=== PATIENT | female | born 1955 | race Caucasian/White ===

== ENCOUNTER 2016-11-13 13:01 | Emergency (ER) | payer MEDICAID ==
[2010-03-13 08:50] VITALS: BMI 27.1
== END 2016-11-13 15:16 | disposition left against medical advice (07) ==
LOC: D.ER 13:01
DX: M79.661 Pain in right lower leg (principal)

== ENCOUNTER → 2016-11-19 13:30 | Outpatient (CLI) | payer MEDICAID | END | disposition home or self-care (01) | LOC: D.CT 13:30 | DX: J32.9 Chronic sinusitis, unspecified (principal) ==

== ENCOUNTER → 2016-12-04 10:15 | Outpatient (CLI) | payer MEDICAID ==
[2010-03-13 08:50] VITALS: BMI 27.1
[~2016-12-04 10:15] MED LIST: ALBUTEROL2.5 MG/3 M INH; ALORA1 PATCH.B1 TD; ATIVAN0.5 MG PO; BENZONATATE200 MG PO; BREO ELLIPTA 21 EACH INH; BROVANA15 MCG/2 M INH; CLEOCIN HCL300 MG PO; FLORAJEN3 CAPS460 MG PO; FLUTICASONE PRO16 GM NASAL; HYDROCODONE-APA1 TAB PO; IPRAT-ALBUT 0.5-3 ML UPD; LEVAQUIN750 MG PO; LIPITOR20 MG PO; MUCINEX DM ER1 EAC1 PO; PEPCID40 MG PO; PREDNISONE10 MG PO; PROAIR HFA8.5 GM INH; PROMETRIUM200 MG PO; SINGULAIR10 MG PO; SPIRIVA18 MCG INH; TOPROL XL50 MG PO; VITAMIN D250000 UNIT PO; VYVANSE60 MG PO; WELLBUTRIN SR150 MG PO; XANAX0.5 MG PO
[2016-12-04 11:40] LABS: CREATININE - SERUM 1.1 mg/dL (0.6-1.3)
[2017-03-06 16:24] VITALS: BMI 27.9
== END | disposition home or self-care (01) ==
LOC: D.CT 10:15
PROVIDERS: Family Medicine
DX: C96.9 Malignant neoplasm of lymphoid, hematopoietic and related tissue, unspecified (principal)

== ENCOUNTER 2016-12-07 09:00 | Outpatient (CLI) | payer MEDICAID ==
[2010-03-13 08:50] VITALS: BMI 27.1
[2016-12-13] MEDS ORDERED: LIPITOR20 MG PO (11:29)
[2016-12-13] MEDS ORDERED: ALORA1 PATCH.B1 TD (11:29)
[2016-12-13] MEDS ORDERED: TOPROL XL50 MG PO (11:29)
[2016-12-13] MEDS ORDERED: FLUTICASONE PRO16 GM NASAL (11:29)
[2016-12-13] MEDS ORDERED: PEPCID40 MG PO (11:29)
[2016-12-13] MEDS ORDERED: VYVANSE60 MG PO (11:30)
[2016-12-13] MEDS ORDERED: VITAMIN D250000 UNIT PO (11:30)
[2016-12-13] MEDS ORDERED: PROAIR HFA8.5 GM INH (11:30)
[2016-12-13] MEDS ORDERED: PROMETRIUM200 MG PO (11:30)
[2016-12-13] MEDS ORDERED: ATIVAN0.5 MG PO (11:31)
[2016-12-13] MEDS ORDERED: ALBUTEROL2.5 MG/3 M INH (11:32)
[2016-12-13] MEDS ORDERED: SPIRIVA18 MCG INH (11:32)
[2017-03-06 16:24] VITALS: BMI 27.9
== END 2016-12-07 23:59 | disposition home or self-care (01) ==
LOC: D.MAMMO 09:00
DX: R92.8 Other abnormal and inconclusive findings on diagnostic imaging of breast (principal)

== ENCOUNTER 2016-12-14 06:47 | Day surgery (SDC) | payer MEDICAID ==
[~2016-12-14 06:47] MED LIST changes: -BENZONATATE200 MG PO; -BREO ELLIPTA 21 EACH INH; -BROVANA15 MCG/2 M INH; -CLEOCIN HCL300 MG PO; -FLORAJEN3 CAPS460 MG PO; -HYDROCODONE-APA1 TAB PO; -IPRAT-ALBUT 0.5-3 ML UPD; -LEVAQUIN750 MG PO; -MUCINEX DM ER1 EAC1 PO; -PREDNISONE10 MG PO; -SINGULAIR10 MG PO; -WELLBUTRIN SR150 MG PO; -XANAX0.5 MG PO
[2016-12-14 07:38] LABS: BASOPHILS 0.2 % (0-2); EOSINOPHILS 3.4 % (0-7); HEMATOCRIT 40.4 % (36.0-48.0); HEMOGLOBIN 13.4 g/dL (12-16); IMMATURE GRANULOCYTES 0.2 % (0-5); LYMPHOCYTES 35.3 % (15-50); MCH 31.6 pg (26.0-34.0); MCHC 33.2 g/dL (31.0-37.0); MCV 95.3 fL (80.0-100.0); MEAN PLATELET VOLUME 11.7 fL (7.4-10.4); MONOCYTES 8.9 % (2-11); PLATELET COUNT 229 10x3/uL (130-400); RBC 4.24 10x6/uL (4.00-5.40); RDW 12.9 % (11.5-14.5)
[2016-12-14 07:47] LABS: APTT 28.7 SECONDS (22.8-39.4); INR 0.99 (0.85-1.17)
[2016-12-14 08:03] LABS: ANION GAP 13.3 mmol/L (8-16); CALCIUM 8.4 mg/dL (8.5-10.1); CARBON DIOXIDE 25.7 mmol/L (21.0-32.0)
[2016-12-14] MEDS ORDERED: XANAX0.5 MG PO (08:11)
[2016-12-14 08:15] VITALS: BP 124/80; BMI 28.9
[2016-12-14] MEDS ORDERED: HYDROCODONE-APA1 TAB PO (11:06)
--- NOTE | 2016-12-14 11:18 | NUR ---
PATIENT TOOK DENTURES RIGHT BEFORE GENERAL ANESTHESIA THEN TAKEN TO RR TO BE PLACED BACK IN SOON ABLE, DENTURES GIVEN TO RICARDO PENA.
--- NOTE | 2016-12-14 12:36 | OP ---
PATIENT NAME: DANK ARZOLA MEDICAL RECORD: [id number] :59 LOCATION:D.OPS ADMISSION DATE: SURGEON: AARON TAPIA MD DATE OF OPERATION: 12/14/2016 PREOPERATIVE DIAGNOSES: 1. Left axillary lymphadenopathy. 2. Tobacco dependence syndrome. 3. Hypercholesterolemia. 4. Osteoporosis. 5. History of renal cell carcinoma. POSTOPERATIVE DIAGNOSES: 1. Left axillary lymphadenopathy. 2. Tobacco dependence syndrome. 3. Hypercholesterolemia. 4. Osteoporosis. 5. History of renal cell carcinoma. PROCEDURE: Left axillary lymph node excisional biopsy. SURGEON: Aaron Tapia MD REPORT OF PROCEDURE: The patient's left axilla was prepped and draped in sterile fashion. A transverse incision was made overlying the mass. Electrocautery was used to dissect through the subcutaneous tissues. We encountered the large mass. We were able to come around the mass and excise it from the surrounding attachments. There were couple of blood vessels that were attached to this and these were tied off and ligated with 2-0 silk ties. Once the mass was completely excised, it was sent off for permanent specimen. The subcutaneous tissues were irrigated out and care was taken to make sure there was no sign of any active bleeding. The subcutaneous tissues were reapproximated with interrupted 3-0 Vicryl and the skin was closed with running subcutaneous 5-0 Monocryl. A 10 mL of 0.25% Marcaine with epinephrine was infused in the surrounding tissues and the wound was dressed appropriately. COMPLICATIONS: None. CONDITION: Stable. ANESTHESIA: General endotracheal and local. BLOOD LOSS: Minimal. TRANSINT:[id number] Voice Confirmation ID: [id number] DOCUMENT ID: [id number] AARON TAPIA MD at 1236 CC: MARYSOL FLORES M.D. [id number] DICTATION DATE: 12/14/16 1110 BOX STAMPER: 12/14/16 1148 [place] [id number]
--- NOTE | 2016-12-14 13:00 | NUR ---
DC TEACHING COMPLETE WITH PT AND SON PT VU. PRESCRIPT GIVEN PIV REMPVED W/CATHETER TIP INTACT. GOING TO FINISH SALAD BEFORE LEAVING.
--- NOTE | 2016-12-14 13:20 | NUR ---
PT DC HOSP. VIA WC W/SON DRIVING. FRESH ICE BAG GIVEN PT W/O DISTRESS NOTED.
== END 2016-12-14 13:20 | disposition home or self-care (01) ==
LOC: D.OPS 06:47 → D.PAN 13:15 → D.OPS 13:20
PROVIDERS: Anesthesiology
DX: R59.0 Localized enlarged lymph nodes (principal); F17.200 Nicotine dependence, unspecified, uncomplicated; E78.00 Pure hypercholesterolemia, unspecified; M81.0 Age-related osteoporosis without current pathological fracture; Z01.812 Encounter for preprocedural laboratory examination

== ENCOUNTER 2017-02-01 11:35 | Inpatient (IN) | payer MEDICAID ==
[~2017-02-01] VITALS: Ht 162.6 cm; Wt 78.1 kg
[~2017-02-01 11:35] MED LIST changes: +HYDROCODONE-APA1 TAB PO; +XANAX0.5 MG PO
[2017-02-01] MEDS ORDERED: WELLBUTRIN SR150 MG PO (12:15)
[2017-02-01 12:22] VITALS: BP 145/75; BMI 29.4
[2017-02-01 12:50] VITALS: BP 145/74
--- NOTE | 2017-02-01 12:51 | NUR ---
ADMISSION WORK-UP COMPLETED. PT A&O AND VERY ANXIOUS WITH VERY LABORED RR. LUNGS ARE CTA. PROVIDED PT WITH NC @2L TO HELP WITH ANXIETY AND HELP HER BREATHE EASIER. 22 GUAGE PIV INSERTED TO R.FA X2 STICKS AND SL WILL BEGIN ANBX SHORTLY. PT DENIES ANY CURRENT PAIN OR FURTHER NEEDS. WILL CPOC.
--- NOTE | 2017-02-01 13:22 | NUR ---
URINE SAMPLE COLLECTED AND SENT TO LAB. PT NOT WANTING FLU SWAB OR STREP AND STATES THE CLINIC JUST DID IT. WILL DISCUSS WITH PRIMARY. PT SITTING ON EDGE OF BED AND GOING TO TRY AND EAT SOME LUNCH. WILL CPOC.
[2017-02-01 13:43] LABS: APPEARANCE CLEAR (CLEAR); COLOR YELLOW (YELLOW); SPECIFIC GRAVITY 1.015 (1.005-1.020)
[2017-02-01 13:44] LABS: BILIRUBIN NEGATIVE (NEGATIVE); EPITHELIAL CELLS 0-5 /hpf (0-5); GLUCOSE NEGATIVE (NEGATIVE); KETONE NEGATIVE (NEGATIVE); NITRITE NEGATIVE (NEGATIVE); PROTEIN 1+ mg/dL (NEGATIVE); RED CELLS - URINE 0-5 /hpf (0-5); UROBILINOGEN NORMAL (NORMAL); WHITE CELLS - URINE 0-5 /hpf (0-5)
[2017-02-01 13:45] LABS: BACTERIA FEW /hpf (NONE SEEN)
--- NOTE | 2017-02-01 14:26 | NUR ---
CALLED LAB INQUIRING ABOUT PTS LABS THEY WERE ORDERED 2 HOURS AGO UPON ADMISSION AND STILL HAVENT BEEN DRAWN. SPOKE TO BUSINESS SERVICES SALES REPRESENTATIVE AND THEY STATED THEY WILL HEAD THIS WAY.
[2017-02-01 15:26] LABS: BASOPHILS 0.5 % (0-2); EOSINOPHILS 0.2 % (0-7); IMMATURE GRANULOCYTES 0.5 % (0-5); LYMPHOCYTES 23.8 % (15-50); MCH 31.3 pg (26.0-34.0); MCHC 33.3 g/dL (31.0-37.0); MCV 93.8 fL (80.0-100.0); MEAN PLATELET VOLUME 11.1 fL (7.4-10.4); MONOCYTES 12.6 % (2-11); NEUTROPHILS 62.4 % (40-80); PLATELET COUNT 208 10x3/uL (130-400); RBC 3.84 10x6/uL (4.00-5.40); RDW 13.1 % (11.5-14.5)
[2017-02-01 15:34] LABS: ANION GAP 14.1 mmol/L (8-16); CALCIUM 8.1 mg/dL (8.5-10.1); CARBON DIOXIDE 23.7 mmol/L (21.0-32.0); CREATININE - SERUM 1.1 mg/dL (0.6-1.3); POTASSIUM - SERUM 3.8 mmol/L (3.5-5.1)
[2017-02-01 16:22] VITALS: BP 135/72
--- NOTE | 2017-02-01 17:50 | NUR ---
PT VERY ANXIOUS AND SCARED SHE CANT CATCH HER BREATH. VSS AND OXYGEN LEVEL 94% PT NORMALLY TAKES XANAX AT HOME AND IS REQUESTING IT. PAGED PRIMARY DOCTOR AND WILL TRY TO GET IT.
--- NOTE | 2017-02-01 19:25 | NUR ---
ROUNDING NOTE: PT IS SITTING UP IN CHAIR VISITING WITH SON AND AND GRANDSON IN HER ROOM AT THE CHANGE OF SHIFT. PT IS WEARING 3L OF OXYGEN VIA NC. SHE APPEARS VERY NERVOUS WITH SLIGHTLY LABORED RESPIRATIONS. OXYGEN SATS ARE WNL. PT DOES NOT WANT TO REDO THE FLU AND STREP CULTURES AT THE TIME SINCE THEY WERE JUST DONE AT THE MD OFFICE. WE DISCUSSED THE NEED TO REMAIN CALM TO HELP HER BREATHING. SHE AND HER SON AGREED WITH THIS. PT REQUESTED SOME ICE WATER, GIVEN PER REQUEST. WILL MONITOR.
[2017-02-01 20:59] VITALS: BP 136/73
[2017-02-02 01:13] VITALS: BP 111/70
[2017-02-02 04:51] VITALS: BP 107/59
[2017-02-02 05:18] LABS: BASOPHILS 0.4 % (0-2); EOSINOPHILS 0 % (0-7); HEMATOCRIT 35.3 % (36.0-48.0); HEMOGLOBIN 11.8 g/dL (12-16); LYMPHOCYTES 16.9 % (15-50); MCH 31.4 pg (26.0-34.0); MCHC 33.4 g/dL (31.0-37.0); MCV 93.9 fL (80.0-100.0); MEAN PLATELET VOLUME 11.2 fL (7.4-10.4); MONOCYTES 3.8 % (2-11); NEUTROPHILS 77.9 % (40-80); PLATELET COUNT 232 10x3/uL (130-400); RBC 3.76 10x6/uL (4.00-5.40); RDW 13.1 % (11.5-14.5); WBC 7.9 10x3/uL (4.8-10.8)
[2017-02-02 05:50] LABS: ANION GAP 16.5 mmol/L (8-16); CALCIUM 8.2 mg/dL (8.5-10.1); CARBON DIOXIDE 24.3 mmol/L (21.0-32.0); CREATININE - SERUM 1.1 mg/dL (0.6-1.3); POTASSIUM - SERUM 3.8 mmol/L (3.5-5.1)
--- NOTE | 2017-02-02 07:14 | NUR ---
PT REPORTS THAT SHE IS FEELING SO MUCH BETTER THIS MORNING AFTER RECEIVING HER STEROIDS AND ANXIETY MEDICINE. WILL CONT TO MONITOR.
--- NOTE | 2017-02-02 07:30 | NUR ---
RECIEVED PT IN BED AAOX4 RESP UNLABORED NAD NOTED
[2017-02-02 08:45] VITALS: BP 126/69
[2017-02-02 11:27] VITALS: Ht 162.6 cm; Wt 78.1 kg
[2017-02-02 11:49] VITALS: BP 124/63
--- NOTE | 2017-02-02 15:41 | NUR ---
PT REFUSES TO WEAR SCDS PT IS UP AD GRACE
[2017-02-02 15:45] VITALS: BP 143/69
[2017-02-02 21:24] VITALS: BP 124/57
[2017-02-03] VITALS: BP 112/49
[2017-02-03 04:00] VITALS: BP 125/71
[2017-02-03 05:23] LABS: BASOPHILS 0.2 % (0-2); EOSINOPHILS 0 % (0-7); HEMATOCRIT 33.9 % (36.0-48.0); HEMOGLOBIN 11.1 g/dL (12-16); IMMATURE GRANULOCYTES 2.2 % (0-5); LYMPHOCYTES 14.5 % (15-50); MCH 30.4 pg (26.0-34.0); MCHC 32.7 g/dL (31.0-37.0); MCV 92.9 fL (80.0-100.0); MEAN PLATELET VOLUME 11.2 fL (7.4-10.4); MONOCYTES 7.6 % (2-11); NEUTROPHILS 75.5 % (40-80); PLATELET COUNT 257 10x3/uL (130-400); RBC 3.65 10x6/uL (4.00-5.40); RDW 13.4 % (11.5-14.5)
[2017-02-03 05:34] LABS: WBC 14.9 10x3/uL (4.8-10.8)
[2017-02-03 05:36] LABS: ANION GAP 15.1 mmol/L (8-16); CALCIUM 8.7 mg/dL (8.5-10.1); CARBON DIOXIDE 24.7 mmol/L (21.0-32.0); CREATININE - SERUM 1.1 mg/dL (0.6-1.3); POTASSIUM - SERUM 3.8 mmol/L (3.5-5.1)
--- NOTE | 2017-02-03 07:30 | NUR ---
RESTING QUIETLY DENIES ANY NEEDS OR DISCOMFORT NAD NOTED
--- NOTE | 2017-02-03 07:36 | NUR ---
LYING IN BED EYES CLOSED RESTING. APPROPRIATE RISE AND FALL OF CHEST. NO S/SX OF RESPIRATORY DISTRESS NOTED. CALL LIGHT AND PERSONAL ITEMS WITHIN REACH, BED LOW, SR X3. WILL CONTINUE TO MONITOR
--- NOTE | 2017-02-03 09:17 | NUR ---
ADMINISTERED MORNING MEDS WHOLE WITHOUT DIFFICULTY. DENIES ANY NEEDS OR PAIN. NO S/SX OF RESPIRATORY DISTRESS. ALERT AND ORIENTED X4. CALL LIGHT AND PERSONAL ITEMS WITHIN REACH, BED LOW AND SR X2. WILL CONTINUE TO MONITOR
[2017-02-03 09:34] VITALS: BP 151/70
[2017-02-03 12:16] VITALS: BP 95/65
--- NOTE | 2017-02-03 12:31 | NUR ---
SITTING UP IN BED EATING LUNCH. DENIES ANY NEEDS OR PAIN. NO S/SX OF RESPIRATORY DISTRESS NOTED. CALL LIGHT AND PERSONAL ITEMS WITHIN REACH, BED LOW AND SR X2. WILL CONTINUE TO MONITOR
--- NOTE | 2017-02-03 14:26 | NUR ---
SITTING UP IN CHAIR WATCHING TV. DENIES ANY NEEDS. NO S/SX OF RESPIRATORY DISTRESS NOTED. CALL LIGHT WITHIN REACH, BED LOW AND SR X2. WILL CONTINUE TO MONITOR
[2017-02-03 16:12] VITALS: BP 117/65
--- NOTE | 2017-02-03 16:42 | NUR ---
SITTING UP ON SIDE OF BED LOOKING AT PHONE. DENIES ANY NEEDS. NO S/SX OF RESPIRATORY DISTRESS NOTED. CALL LIGHT AND PERSONAL ITEMS WITHIN REACH, BED LOW AND SR X2. WILL CONTINUE TO MONITOR
--- NOTE | 2017-02-03 19:45 | NUR ---
PT RESTING IN BED WITH NO DISTRESS. PIV SALINE LOCK TO RIGHT HAND. ASSESSMENT COMPLETED. CPOC.
--- NOTE | 2017-02-03 21:35 | NUR ---
BEDTIME MEDS GIVEN. IV ABT UP AND INFUSING. WATCHING TV.
[2017-02-03 21:46] VITALS: BP 137/63
[2017-02-04] VITALS: BP 150/72
--- NOTE | 2017-02-04 02:54 | NUR ---
PT RESTING IN BED WITH EYES CLOSED. RESPS EVEN/NONLABORED. NO DISTRESS.
[2017-02-04 05:33] VITALS: BP 143/84
--- NOTE | 2017-02-04 07:30 | NUR ---
PT SITTING UP IN BED RECEIVING BREATHING TX, DENIES ANY NEEDS WILL CONT TO MONITOR
[2017-02-04 08:52] VITALS: BP 102/67; BP 151/74
--- NOTE | 2017-02-04 11:15 | NUR ---
SITED PT PIV 22G IN R FA X1 STICK. 0845- PT PIV INFILTRATED DC WITH CATH TIP INTACT.
--- NOTE | 2017-02-04 12:32 | NUR ---
PT SITTING UP IN BED DENIES ANY NEEDS OTHER THAN MIRALAX MEDICATION. PT STATES THAT SHE HASNT GONE TO THE BATHROOM SINCE SHE WAS ADMITTED. GOT ORDER PLACED FOR MIRALAX. WILL ADMINISTER MEDICATION ONCE PHARMACY VERIFIES MEDICATION
[2017-02-04 12:39] VITALS: BP 156/89
--- NOTE | 2017-02-04 13:55 | NUR ---
Nutrition follow-up: Diet: Regular PO intake 100% of meals Labs reviewed Wt: 172# RDN following.
[2017-02-04 16:27] VITALS: BP 152/78
--- NOTE | 2017-02-04 20:54 | NUR ---
HS MEDS GIVEN WITH FRESH ICE WATER, PT DENIES PAIN OR NEEDS, BED LOW, CL IN REACH.
[2017-02-04 22:06] VITALS: BP 141/79
[2017-02-05 02:14] VITALS: BP 140/76
--- NOTE | 2017-02-05 03:34 | NUR ---
RESTING WITH EYES CLOSED, RESPERATIONS EVEN NO S/S DISTRESS NOTED.
[2017-02-05 05:55] VITALS: BP 139/77
--- NOTE | 2017-02-05 08:39 | NUR ---
AM ROUNDS - PT SITTING ON SIDE OF BED TALKING ON PHONE. O2 AT 5L VIA NC. MONITOR SHOWING SR, HR 80. UP AD GRACE. IV TO LEFT HAND, SL. BED AT LOWEST POSITION. CALL OGLESBY IN USE/REACH. SIDE RAILS UP X2. BED AT LOWEST POSITION. WILL CONTINUE TO MONITOR
--- NOTE | 2017-02-05 09:12 | NUR ---
AM ROUNDS - PT IS AWAKE AND SITTING IN THE CHAIR AT THIS TIME. UP AD GRACE. O2 AT 2L VIA NC. RIGHT FA, SL. RESERVE LEFT ARM. BED AT LOWEST POSITION. CALL OGLESBY IN USE/REACH. SIDE RAILS UP X2. WILL CONTINEUT O MONITOR
[2017-02-05 09:48] VITALS: BP 140/83
[2017-02-05 12:03] LABS: ANION GAP 9.6 mmol/L (8-16); CALCIUM 8.8 mg/dL (8.5-10.1); CARBON DIOXIDE 29.6 mmol/L (21.0-32.0); CREATININE - SERUM 1.2 mg/dL (0.6-1.3); POTASSIUM - SERUM 4.2 mmol/L (3.5-5.1)
[2017-02-05 12:20] LABS: HEMATOCRIT 36.8 % (36.0-48.0); HEMOGLOBIN 11.9 g/dL (12-16); MCH 30.7 pg (26.0-34.0); MCHC 32.3 g/dL (31.0-37.0); MCV 95.1 fL (80.0-100.0); MEAN PLATELET VOLUME 10.7 fL (7.4-10.4); PLATELET COUNT 369 10x3/uL (130-400); RBC 3.87 10x6/uL (4.00-5.40); RDW 13.8 % (11.5-14.5); WBC 23.3 10x3/uL (4.8-10.8)
[2017-02-05 12:26] VITALS: BP 145/76
[2017-02-05 12:26] LABS: LYMPHOCYTES 27 % (15-50); MONOCYTES 9 % (2-11); NEUTROPHILS 62 % (40-80); PLATELET ESTIMATE NORMAL
--- NOTE | 2017-02-05 18:16 | NUR ---
PT IN BED AT THIS TIME WITH NO NEEDS. WILL CONTINUE TO MONITOR
--- NOTE | 2017-02-05 19:38 | NUR ---
ASSESSMENT COMPLETE, A&O. RESPERATIONS EVEN ON RA. IV TO RIGHT HAND SL. DRSG INTACT. PT DENIES NEEDS, BED LOW, CL IN REACH.
--- NOTE | 2017-02-05 20:42 | NUR ---
HS MEDS GIVEN WITH FRESH ICE WATER, XANAX 1 MG TAB GIVEN AT PT REQUEST, NO OTHER NEEDS VOICED AT THIS TIME, DENIES PAIN. BED LOW, CL IN REACH.
[2017-02-05 21:50] VITALS: BP 165/91
[2017-02-05 23:22] VITALS: BP 134/74
--- NOTE | 2017-02-06 03:13 | NUR ---
RESTING WITH EYES CLOSED, RESPERATIONS EVEN, NO S/S DISTRESS NOTED.
[2017-02-06 04:33] VITALS: BP 153/92
--- NOTE | 2017-02-06 05:21 | NUR ---
PT RESTING COMFORTABLY, NO NEEDS. CONTINUE TO MONITOR CLOSELY.
[2017-02-06 05:25] LABS: BASOPHILS 0.1 % (0-2); EOSINOPHILS 0 % (0-7); HEMATOCRIT 37.8 % (36.0-48.0); HEMOGLOBIN 12.3 g/dL (12-16); IMMATURE GRANULOCYTES 6.1 % (0-5); LYMPHOCYTES 16.4 % (15-50); MCH 30.9 pg (26.0-34.0); MCHC 32.5 g/dL (31.0-37.0); MEAN PLATELET VOLUME 10.7 fL (7.4-10.4); MONOCYTES 2.8 % (2-11); NEUTROPHILS 74.6 % (40-80); PLATELET COUNT 359 10x3/uL (130-400); RBC 3.98 10x6/uL (4.00-5.40); RDW 13.4 % (11.5-14.5)
[2017-02-06 05:34] LABS: WBC 15.8 10x3/uL (4.8-10.8)
[2017-02-06 05:52] LABS: ANION GAP 14.5 mmol/L (8-16); CALCIUM 8.8 mg/dL (8.5-10.1); CARBON DIOXIDE 25.9 mmol/L (21.0-32.0); CREATININE - SERUM 1.3 mg/dL (0.6-1.3)
[2017-02-06 06:03] LABS: POTASSIUM - SERUM 5.4 mmol/L (3.5-5.1)
[2017-02-06 08:21] VITALS: BP 142/78
--- NOTE | 2017-02-06 09:49 | NUR ---
RESTS WITH EYES CLOSED. CALL LIGHT IN REACH. WILL MONITOR NEEDS.
--- NOTE | 2017-02-06 10:00 | NUR ---
PATIEMT IN BED RESTING AT THIS TIME. NO SIGNS OR SYMPTOMS OF DISTRESS NOTED. PATIENT STATES "I AM HAVING ANXIETY, CAN I PLEASE TAKE SOMETHING FOR IT." ADMINISTERED PRN XANAX 1MG PO ORDERED. PATIENT COMPLAINED OF IV HURTING RIGHT HAND AND ASKED FOR THIS NURSE TO REMOVE IT AND START A NEW ONE. IV REMOVED AT THIS TIME WITH CATHETER INTACT. PATIENT STATES "CAN WE WAIT TO REINSERT AN IV UNTIL AFTER I SHOWER PLEASE?" PATIENT STATES SHE WILL CALL OUT WHEN FINISHED WITH SHOWER AND IS CURRENTLY WAITING FOR BROTHER TO BRING CLOTHES BEFORE SHOWERING. NO OTHER PROBLEMS ARE NOTED AT THIS TIME. WILL CONTINUE TO FOLLOW THIS PATIENT'S CURRENT PLAN OF CARE.
[2017-02-06 11:34] VITALS: BP 132/82
[2017-02-06 16:14] VITALS: BP 145/84
[2017-02-06 17:13] LABS: ALBUMIN 2.9 g/dL (3.4-5.0); BILIRUBIN - INDIRECT 0.17 mg/dL (0.00-1.00); BILIRUBIN - TOTAL 0.21 mg/dL (0.2-1.3); PROTEIN - SERUM 7.2 g/dL (6.4-8.2)
[2017-02-06 17:19] LABS: BILIRUBIN - DIRECT 0.04 mg/dL (0.00-0.30)
[2017-02-06 19:00] VITALS: BP 156/81
--- NOTE | 2017-02-06 19:26 | NUR ---
PT SITTING IN BED. HOB 45. PT DENIES ANY NEEDS. NO S/S OF DISTRESS. BED LOW AND CALL LIGHT IN REACH. WILL CPOC
[2017-02-07] VITALS: BP 140/75
--- NOTE | 2017-02-07 | NUR ---
PT ASLEEP. RESPIRATIONS EVEN AND UNLABORED. AROUSES TO VERBAL STIMULI. PT AAO. UP AD GRACE. GAIT STEADY. PT DENIES ANY NEEDS. NO S/S OF DISTRESS. BED LOW AND CALL LIGHT IN REACH. WILL CPOC
[2017-02-07 04:00] VITALS: BP 146/82
[2017-02-07 05:14] LABS: BASOPHILS 0.1 % (0-2); EOSINOPHILS 0 % (0-7); HEMATOCRIT 35.5 % (36.0-48.0); HEMOGLOBIN 11.6 g/dL (12-16); LYMPHOCYTES 11.8 % (15-50); MCH 30.8 pg (26.0-34.0); MCHC 32.7 g/dL (31.0-37.0); MCV 94.2 fL (80.0-100.0); MEAN PLATELET VOLUME 10.4 fL (7.4-10.4); MONOCYTES 4.5 % (2-11); NEUTROPHILS 78.6 % (40-80); PLATELET COUNT 355 10x3/uL (130-400); RBC 3.77 10x6/uL (4.00-5.40); RDW 13.4 % (11.5-14.5); WBC 21.3 10x3/uL (4.8-10.8)
--- NOTE | 2017-02-07 05:16 | NUR ---
PT C/O PAIN IN RIGHT FOREARM IV. CHECK IV, IT HAS INFLITRATION. REMOVED WITH CATH INTACT. NO S/S OF DISTRESS. DENIES ANY NEEDS. BED LOW AND CALL LIGHT WITH IN REACH. WILL CPOC
[2017-02-07 05:28] LABS: ALBUMIN 2.6 g/dL (3.4-5.0); ANION GAP 13.3 mmol/L (8-16); BILIRUBIN - TOTAL 0.29 mg/dL (0.2-1.3); CALCIUM 8.4 mg/dL (8.5-10.1); CARBON DIOXIDE 27.3 mmol/L (21.0-32.0); CREATININE - SERUM 1.2 mg/dL (0.6-1.3); POTASSIUM - SERUM 5.6 mmol/L (3.5-5.1); PROTEIN - SERUM 6.6 g/dL (6.4-8.2)
--- NOTE | 2017-02-07 09:12 | NUR ---
ASSESSMENT DONE. DENIES NEEDS.
[2017-02-07 09:15] VITALS: BP 153/78
[2017-02-07 11:53] VITALS: BP 148/70
[2017-02-07] MEDS ORDERED: BENZONATATE200 MG PO (13:32)
[2017-02-07] MEDS ORDERED: SINGULAIR10 MG PO (13:32)
[2017-02-07] MEDS ORDERED: MUCINEX DM ER1 EAC1 PO (13:32)
[2017-02-07] MEDS ORDERED: FLORAJEN3 CAPS460 MG PO (13:33)
[2017-02-07] MEDS ORDERED: LEVAQUIN750 MG PO (13:33)
--- NOTE | 2017-02-07 13:38 | NUR ---
PT UP OOB AMBULATING IN ROOM. STATES SHE THINKS SHE WILL BE DISCHARGED TODAY AND IS FEELING BETTER OVERALL. PT DENIES ANY CURRENT NEEDS AT THIS TIME. CL IN REACH.
[2017-02-07] MEDS ORDERED: CLEOCIN HCL300 MG PO (13:40)
[2017-02-07] MEDS ORDERED: PREDNISONE10 MG PO (13:43)
--- NOTE | 2017-02-07 13:46 | NUR ---
Nutrition Follow Up: Pt is eating 91% meal avg on a regular diet. Wt stable. No BM since admit - x 6 days. Labs reviewed - glucose elevated. Meds noted including Prednisone. Rec continue current diet. If glucose continues elevated rec changing diet to NCS. RD following.
[2017-02-07] MEDS ORDERED: BREO ELLIPTA 21 EACH INH (13:56)
[2017-02-07] MEDS ORDERED: XANAX0.5 MG PO (14:18)
--- NOTE | 2017-02-07 15:02 | NUR ---
Patient Name: DANK ARZOLA Admission Status: Urgent Accout number: [id number] Admission Date: 02-01-2017 : 1955 Admission Diagnosis:SHORTNESS OF BREATH Attending: ANUPAM CUMMINGS Current LOS: 6 Anticipated DC Date: 02-07-2017 Planned Disposition: Home Primary Insurance: [place] PRIVATE OPTIONS [place] Discharge Planning Comments: * Is the patient Alert and Oriented? Yes 0 * How many steps to enter\\exit or inside your home? 6-O / 14-I 0 * PCP DR. CUMMINGS 0 * Pharmacy [facility] [address] 0 * Preadmission Environment Home with Family 0 * ADLs Independent 0 * Equipment Nebulizer Oxygen 0 * Other Equipment NON WORKING HOME OXYGEN CONCENTRATOR AND EMPTY OXYGEN E-TANK [facility] - MEDICAL EQUIPMENT PROVIDER 0 * List name and contact numbers for known caregivers / representatives who currently or will assist patient after discharge: PRATEEK ARZOLA, SON, 0 * Community resources currently utilized None 0 * Please name any agencies selected above. NONE 0 * Additional services required to return to the preadmission environment? No 0 * Can the patient safely return to the preadmission environment? Yes 0 * Has this patient been hospitalized within the prior 30 days at any hospital? No 0 CM RECEIVED ORDER TO ARRANGE NEBULIZER AND CHECK OXYGEN REQUIREMENTS. CM ADVISED BY BALAJI HURTADO THAT OXYGEN TESTING ORDER HAS BEEN ENTERED. CM MET WITH PT IN ROOM TO DISCUSS DISCHARGE PLANNING AND NEEDS. PT REPORTS LIVING AT HOME INDEPENDENTLY; IN THE HOME IS PT'S ADULT SON. PT HAS NEBULIZER, NON WORKING HOME OXYGEN CONCENTRATOR AND EMPTY OXYGEN E TANK FROM [facility]. PT REPORTS HER NEBULIZER WORKS BUT IS "VERY OLD." PT H NO OUTSIDE SERVICES ASSISTING IN THE HOME. CM DISCUSSED AVAILABILITY OF HOME HEALTH, REHAB SERVICES AND MEDICAL EQUIPMENT. PT DENIES NEED OF REHAB SERVICES OR HOME HEALTH, REPORTS HER SON WILL PICK HER UP FOR DISCHARGE HOME. CM CALLED [facility], , SPOKE TO JUAN JOSE WHO VERIFIED PT HAS EQUIPMENT FROM [facility]; THEY WILL SCHEDULE APPOINTMENT TO CHECK PT'S NEBULIZER AND OXYGEN EQUIPMENT WITH PT AT HOME TO ENSURE PROPER OPERATION. PT NOTIFIED, DENIES FURTHER DISCHARGE NEEDS. SALES REPRESENTATIVE GIRLS' APPAREL NURSE NOTIFIED. CM TO ARRANGE PORTABLE OXYGEN WITH [facility] IF OXYGEN TESTING YIELDS QUALIFYING SATURATIONS. TESTING COMPLETED, PT DID NOT HAVE QUALIFYING SATURATIONS FOR HOME OR PORTABLE OXYGEN. Shine Worker: Ramiro Robbins
--- NOTE | 2017-02-07 16:28 | NUR ---
RX AND DC GIVEN TO PT
--- NOTE | 2017-02-07 16:36 | NUR ---
DC HOME PER PERSONAL CAR
[2017-02-07 16:53] VITALS: BP 151/88
--- NOTE | 2017-02-28 14:06 | CN ---
PATIENT NAME:DANK LANDERS MEDICAL RECORD: [id number] : 59 LOCATION:[facility] D.2132 ADMIT DATE: 02/01/17 ACCOUNT: [id number] CONSULTING PHYSICIAN: GEORGIE ALCALA MD REFERRING PHYSICIAN: ANUPAM CUMMINGS MD DATE OF CONSULTATION: 02/01/2017 CONSULT REQUESTING PHYSICIAN: Jordan Hernández MD REASON FOR CONSULTATION: Pneumonia, acute exacerbation of chronic obstructive pulmonary disease. HISTORY OF PRESENT ILLNESS: Ms. Landers is a 61-year-old female who just came from a trip to [place]. When she came back, she was sick, she has a fever and at one time, it was 103. She also has aches and pain. She was seen in urgent care, given some antibiotic, but is not getting any better. She was seen in Dr. Hall's [place] office today and the patient was admitted for the pneumonia, acute exacerbation of COPD. She is coughing with productive yellow color sputum production. She also herself wheezing. She has shortness of breath with mild exertion. Denies any chest pain. REVIEW OF SYSTEMS: Mainly in the history of present illness. PAST MEDICAL HISTORY: 1. COPD. 2. Asthma. 3. Hyperlipidemia. 4. Hypertension. 5. Gastroesophageal reflux disease. 6. Irritable bowel syndrome. 7. Chronic renal failure. 8. Polycystic ovarian disease. 9. Pulmonary nodule consistent with adenocarcinoma. 10. History of renal cell carcinoma and history of breast carcinoma diagnosed in December 2016. PAST SURGICAL HISTORY: She has a right nephrectomy. ALLERGIES: There are no known drug allergies. MEDICATIONS: On Lateral SV was reviewed. PERSONAL AND SOCIAL HISTORY: The patient is still current everyday smoker. She is not smoking for the last 1 week to 10 days when she was sick. She is a nondrinker. FAMILY HISTORY: Significant for mother has breast cancer. Father has history of alcoholism. PHYSICAL EXAMINATION: GENERAL: Now, the patient is lying comfortably. She is not in acute distress. VITAL SIGNS: The blood pressure 145/74, pulse is 109, respirations 22, CONSULT REPORT [id number] DANK LANDERS temperature 98.6, and SPO2 is 98% on 2 liters nasal cannula. HEENT: Conjunctivae is pink, sclerae nonicteric. NECK: Supple, no JVD. CHEST: Excursion is minimal on both sides with prolonged expiration with wheezing. HEART: Rhythm regular, normal sound, no murmur. ABDOMEN: Soft, bowel sounds present. No hepatosplenomegaly. RECTAL: Deferred. EXTREMITIES: No cyanosis, no clubbing, no pedal edema. SKIN: Warm, normal turgor. CENTRAL NERVOUS SYSTEM: The patient is awake and alert. There is no obvious cranial nerve abnormality. The gait was not tested. CHEST RADIOGRAPH: There is infiltrate, right lower lobe. OTHER LABORATORY DATA: CBC: WBC 10,000, hemoglobin 12, hematocrit 36, platelet count 208. Chemistry: Sodium 128, potassium 3.8, BUN 11, creatinine 1.1. IMPRESSION: 1. Acute exacerbation of chronic obstructive pulmonary disease. 2. Pneumonia, right lower lobe, most likely community-acquired pneumonia. 3. Chronic obstructive pulmonary disease, asthma overlap syndrome. 4. History of cancer of the breast diagnosed by the lymph node biopsy in December 2016, followed by Dr. Chu. 5. Gastroesophageal reflux disease. 6. Tobacco dependence syndrome. 7. Hyponatremia. RECOMMENDATION: 1. We will adjust the dose of Levaquin and add Rocephin IV. 2. Albuterol and ipratropium nebulizer and start Tudorza inhaler, Brovana and budesonide nebulizer. 3. Supplemental oxygen. 4. Antitussive. 5. Follow up labs and chest radiograph in the morning. Check the alpha [address] Hernández, thank you for involving me in the care of Ms. Landers. TRANSINT:[id number] Voice Confirmation ID: [id number] DOCUMENT ID: [id number] GEORGIE ALCALA MD at 1406 CC: JORDAN HERNÁNDEZ MD [id number] DICTATION DATE: 02/01/17 1616 RESEARCH NEUROPSYCHOLOGIST: 02/01/17 1745 DIS IN 02/07/17 [place] [id number] [facility] [place] [address]
== END 2017-02-07 16:36 | disposition home or self-care (01) | DRG 178 ==
LOC: D.M2 11:35
PROVIDERS: Family Medicine; ADMIT Emergency Medicine
DX: J15.6 Pneumonia due to other Gram-negative bacteria (principal); J44.1 Chronic obstructive pulmonary disease with (acute) exacerbation; J44.0 Chronic obstructive pulmonary disease with (acute) lower respiratory infection; M35.1 Other overlap syndromes; E87.1 Hypo-osmolality and hyponatremia; J13 Pneumonia due to Streptococcus pneumoniae; E78.5 Hyperlipidemia, unspecified; I12.9 Hypertensive chronic kidney disease with stage 1 through stage 4 chronic kidney disease, or unspecified chronic kidney disease; N18.9 Chronic kidney disease, unspecified; K58.9 Irritable bowel syndrome, unspecified; E28.2 Polycystic ovarian syndrome; F17.200 Nicotine dependence, unspecified, uncomplicated; J15.212 Pneumonia due to Methicillin resistant Staphylococcus aureus; K21.9 Gastro-esophageal reflux disease without esophagitis; E87.5 Hyperkalemia; Z85.528 Personal history of other malignant neoplasm of kidney; C50.912 Malignant neoplasm of unspecified site of left female breast

== ENCOUNTER 2017-02-27 13:12 | Inpatient (IN) | payer MEDICAID ==
[~2017-02-27] VITALS: Ht 162.6 cm; Wt 73.9 kg
--- NOTE | ~2017-02-27 | EC ---
PATIENT:DANK ARZOLA DATE OF SERVICE: 02/27/17 SEX: F MEDICAL RECORD: [id number] DATE OF : [birth year] LOCATION:D.MS [facility] AGE OF PATIENT: 61 ADMISSION DATE: 02/27/17 REFERRING PHYSICIAN: INTERPRETING PHYSICIAN: JUDE CORNEJO MD ECHOCARDIOGRAM REPORT ECHO CHARGES 4 ECHO COMPLETE CLINICAL DIAGNOSIS: PRE-CHEMOTHERAPY ECHOCARDIOGRAPHIC MEASUREMENTS (adult normal given) AC root (d.<3.7cm) 3.4 cm LV Septum d (<1.2 cm> 1.4 cm Valve Excursion 1.9 cm LV Septum (systole) 1.9 cm Left Atria (s.<4.0cm> 3.1 cm LVPW d(<1.2cm) 1.1 cm RV (d.<2.3cm) 2.3 cm LVPW (sytole) 1.9 cm LV diastole(<5.6CM) 4.9 cm MV E-F(>70mm/sec) cm LV systole 2.4 cm LVOT Diameter 1.9 cm MV exc.(>10mm) cm Est.ejection fraction (50-75%) % Pericardial Effusion N DOPPLER: LVIT cm/sec A 102 cm/sec E 82.0 cm/sec LA cm/sec RVSP 31.0 mmHg LVOT 121 cm/sec AOP1/2T m/s Asc. Ao 170 cm/sec RVOT 79.0 cm/sec RA cm/sec PA 110 cm/sec AV Gradient Peak 12.0 mmHg AV Mean 5.6 mmHg AV Area 1.8 cm MV Gradient Peak 5.2 mmHg MV Mean 2.1 mmHg MV Area cm COMMENTS: Cheese Maker: Quyen VANOE Chemical Detection Expert: 1 Dr. Schwartz TAPE# PACS DATE OF SERVICE: 03/01/2017 Adequate 2D echo, color flow, spectral Doppler, and M-mode. Borderline LVH. LV internal dimension is normal. Wall motion is normal. EF is greater than or equal to 55%. Aortic valve is tricuspid, no stenosis by Doppler interrogation. Left atrium is normal. Mitral valve shows no prolapse. Trace MR. Right-sided chambers grossly normal. Trace TR. TRANSINT:[id number] Voice Confirmation ID: [id number] DOCUMENT ID: [id number] 03/08/2017 Edited to correct date of service, dmm. ECHOCARDIOGRAM REPORT [id number] DANK ARZOLA GREGORY A MD at 1210 CC: [id number] DICTATION DATE: 03/05/17 1425 BAND LINING BANDER: 03/05/17 1509 ADM IN [place] [id number] [place] [address]
--- NOTE | ~2017-02-27 | OP ---
PATIENT NAME: DANK ARZOLA MEDICAL RECORD: [id number] :59 LOCATION:D.MS [id number] ADMISSION DATE:02/27/17 SURGEON: JONI GEIGER MD DATE OF OPERATION: 03/08/2017 PREOPERATIVE DIAGNOSES: Sinusitis and breast cancer, pending chemotherapy. POSTOPERATIVE DIAGNOSES: Sinusitis and breast cancer, pending chemotherapy. PROCEDURE: Bilateral middle meatal antrostomies, left anterior ethmoidectomy, left sphenoidotomy. SURGEON: Joni Geiger MD ANESTHESIA: General orotracheal. BLOOD LOSS: Less than 5 cc. SPECIMENS: Cultures from both maxillary sinuses. COMPLICATIONS: None. DISPOSITION: Recovery stable. NASAL PACKING: None. DESCRIPTION OF PROCEDURE: She was brought to the operating room and placed in supine position, sedated and intubated by anesthesia. The table was turned 90 degrees. A head drape was applied and she was positioned for sinus surgery. She had been decongested with Afrin preoperatively. Using a headlight, both sides of the nose were examined. The uncinate, base of the middle turbinate, inferior turbinate were injected with a total of 1 cc of 1% lidocaine with 1:100,000 epinephrine and Afrin pledget was placed in the middle meatus and along the inferior turbinate bilaterally. She was positioned, prepped and draped in the usual sterile fashion for sinus surgery. Using a 0-degree scope, the left side of the nose was examined first. Both Afrin pledgets were removed. Floor of the nose was examined. She did have a sharp left nasal septal spur in between the middle and inferior turbinates, but really did not interfere with surgical access. There was no drainage in the nose, the nasopharynx and eustachian tube orifices and fossa of Rosenmueller were all normal. The middle turbinate was normal. I was able to go above the septal spur and look at the superior turbinate, it was normal. I medialized and then lateralized with a freer and then the sphenoid ostia was examined first before there was any bleeding in the nose. I was able to look at that and just go. The ostia was identified, it was kind of swollen shut, but I was able to push through there was just a seventh suction right into the sinus, opened that up nicely and then just with low circumferential pressure opened that up and there was a nice open sphenoid sinus. There was really no indication of any fluid in there, so that was just the left like that. Then the middle turbinate was medialized. A curved olive tip suction was inserted into the maxillary sinus, really again the natural ostia was closed up and was able to get into the maxillary sinus easily and then used a Luki trap and suctioned out the contents. There was a significant amount of purulence in the sinus, then the Luki trap was closed off. Cultures were obtained from that and the Luki trap was sent as well. Then, the sinus was irrigated repeatedly with saline and suctioned out. The ethmoid was OPERATIVE REPORT [id number] DARIUSZ,DANK Ken entered inferomedially with the microdebrider and proceeding posteriorly. There were some mucosal thickening changes, but really no purulence, nothing more than that, so I really just performed an anterior ethmoidectomy. There was minimal bleeding there. An Afrin pledget was placed in the ethmoid cavity on that left side. Then the right side was examined. Both Afrin pledgets were removed and it was more open since the septal deviation was to the left. Inferior middle turbinate was normal, nasopharynx, nasal vault, posterior nasal cavity were all normal. The middle turbinate was medialized gently. The uncinate was retracted anteriorly with the ball tip probe and then she really did not have much of an uncinate on either side. A curved olive tip suction was inserted into the maxillary sinus and again the same with the Luki trap it was suctioned out, rinsed with a little bit of saline and suctioned out again, really was not maybe a little bit of purulence in the sinus, but not much, not like that left side. Once that was irrigated out a few times, the meatus was opened up, it really looked good. Then, all the Afrin pledgets were removed from both sides, just 1 more from the left side. Both sides were irrigated out. The maxillary sinuses were irrigated out using a curved large olive tip suction just repeatedly irrigating them out with a 30 cc syringe and then some mupirocin on a curved olive tip suction was placed in both maxillary sinuses. Ethmoid cavity was rinsed out on the left side, the nasopharynx was suctioned. With everything completely clean and dry, she was awakened, extubated, and transported to recovery in good condition. No complications. TRANSINT:[id number] Voice Confirmation ID: [id number] DOCUMENT ID: [id number] JONI GEIGER MD at 1313 CC: [id number] DICTATION DATE: 03/08/17 0908 MEDICAL INSURANCE BILLER: 03/08/17 1105 DIS IN 03/09/17 [place] [id number] [place] [id number]
--- NOTE | ~2017-02-27 | CN ---
PATIENT NAME:DANK LANDERS MEDICAL RECORD: [id number] : 59 LOCATION:D.MS [facility]2228 ADMIT DATE: 02/27/17 ACCOUNT: [id number] CONSULTING PHYSICIAN: GEORGIE ALCALA MD REFERRING PHYSICIAN: ANUPAM GRAY MD DATE OF CONSULTATION: 02/28/2017 CONSULT REQUESTING PHYSICIAN: Barney Watts MD REASON FOR CONSULTATION: Pneumonia, right lower lobe, acute exacerbation of COPD. HISTORY OF PRESENT ILLNESS: Ms. Landers is a 61-year-old female who was admitted in the first week of February with pneumonia, bilateral lower lobes. She was feeling better, but then yesterday she was not feeling well. She was seen in Dr. Gray's office, chest radiograph was done, admitted for the pneumonia. Denies any fever and chills, no night sweats. She has cough very little sputum production. There is no hemoptysis. REVIEW OF SYSTEMS: As in history of present illness. PAST MEDICAL HISTORY: 1. COPD-asthma overlap syndrome. 2. Hyperlipidemia. 3. Hypertension. 4. Gastroesophageal reflux disease. 5. CA of the breast. 6. Irritable bowel syndrome. 7. Chronic renal failure. 8. Polycystic ovarian disease. 9. Pulmonary nodule consistent with adenocarcinoma. 10. History of renal cell carcinoma and history of breast carcinoma, diagnosed in December of this year. PAST SURGICAL HISTORY: She had a right nephrectomy. ALLERGIES: There are no known drug allergies. MEDICATIONS: On [employer] was reviewed. PERSONAL AND SOCIAL HISTORY: The patient is a current everyday smoker. She is a nondrinker. FAMILY HISTORY: Significant for mother has breast cancer. Father has history of alcoholism. PHYSICAL EXAMINATION: GENERAL: Now, the patient is lying comfortably in bed. She is not in acute distress. VITAL SIGNS: The blood pressure is 108/67, pulse is 94, respiration is 18, temperature 97.7, SpO2 of 97% on room air. HEENT: Conjunctivae pink, sclerae nonicteric. NECK: Neck is supple. No JVD. CHEST: The chest excursion is minimal on both sides. There are crackles at the bases. No wheezing. CONSULT REPORT [id number] DANK LANDERS HEART: Rhythm regular, normal sound, no murmur. ABDOMEN: Abdomen is soft. Bowel sounds present. No hepatosplenomegaly. RECTAL: Deferred. EXTREMITIES: No cyanosis, no clubbing, no pedal edema. CENTRAL NERVOUS SYSTEM: The patient is awake and alert. There is no obvious cranial nerve abnormality. The gait was not tested. CHEST RADIOGRAPH: Compared to the chest radiograph in February, the infiltrate right lower lobe and left lower lobe is improving. OTHER LABORATORY DATA: CBC: WBC 14.4, hemoglobin 11.1, hematocrit 34.3, the platelet count is 204. IMPRESSION: 1. Pneumonia, bilateral lower lobes, right more than the left. 2. Acute exacerbation of chronic obstructive pulmonary disease. 3. History of CA of the breast. 4. Leukocytosis secondary to pneumonia. 5. Gastroesophageal reflux disease. 6. Tobacco dependence syndrome. 7. History of asthma. 8. History of pulmonary nodule consistent with adenocarcinoma. RECOMMENDATION: 1. Albuterol, ipratropium nebulizer. Start Brovana, budesonide nebulizer, methylprednisolone IV. Adjust the dose of Levaquin. Continue Rocephin IV. 2. Follow up labs and chest radiograph. 3. The patient was counseled regarding smoking cessation. Dr. Watts, thank you for involving me in the care of Ms. Landesr. TRANSINT:[id number] Voice Confirmation ID: [id number] DOCUMENT ID: [id number] GEORGIE ALCALA MD CC: ANUPAM GRAY MD [id number] DICTATION DATE: 02/28/171401 PEDIATRICIAN/MEDICAL DOCTOR: 02/28/17 1448 ADM IN [facility] [address] [place] [address]
--- NOTE | ~2017-02-27 | OP ---
PATIENT NAME: DANK ARZOLA MEDICAL RECORD: [id number] :59 LOCATION:[id number] ADMISSION DATE:02/27/17 SURGEON: AARON TAPIA MD DATE OF OPERATION: 03/07/2017 PREOPERATIVE DIAGNOSES: 1. Breast cancer. 2. Pneumonia. 3. Hypertension. 4. Hyperlipidemia. 5. Chronic obstructive pulmonary disease. 6. Gastroesophageal reflux disease. 7. Irritable bowel syndrome. POSTOPERATIVE DIAGNOSES: 1. Breast cancer. 2. Pneumonia. 3. Hypertension. 4. Hyperlipidemia. 5. Chronic obstructive pulmonary disease. 6. Gastroesophageal reflux disease. 7. Irritable bowel syndrome. PROCEDURE: 1. Right subclavian vein PowerPort placement. 2. Fluoroscopic interpretation. SURGEON: Aaron Tapia MD REPORT OF PROCEDURE: The patient's right chest was prepped and draped in sterile fashion. The needle was used to cannulate the right subclavian vein. The guidewire was advanced with ease. Fluoro was used to note to manipulate the wire in good position in the superior vena cava. The patient had a subcutaneous pouch made on the right upper outer chest using electrocautery. The catheter was then tunneled between this pouch and the wire exit site. The port was then sutured to the pectoral fascia using interrupted 4-0 Prolenes times 2. The catheter was then cut with a beveled tip at 18 cm. The dilator trocar device was placed over the wire and the wire and dilator were removed. The catheter tip was advanced through the trocar and the trocar was removed. The catheter tip was noted to be in good position at the right atrial superior vena caval junction. The catheter aspirated nonpulsatile dark blood and flushed easily with heparinized saline. The subcutaneous tissues are then reapproximated with interrupted 3-0 Vicryls and the skin was closed with running subcutaneous 5-0 Monocryl. We then accessed the port through the skin and flushed it one last time with heparinized saline before applying the dressing. COMPLICATIONS: None. CONDITION: Stable. ANESTHESIA: General endotracheal. BLOOD LOSS: Minimal. TRANSINT:[id number] Voice Confirmation ID: [id number] DOCUMENT ID: [id number] OPERATIVE REPORT [id number] DANK ARZOLA AARON TAPIA MD at 0956 CC: [id number] DICTATION DATE: 03/07/17 1142 [employer]BER OTHER RANKS: 03/07/17 1302 DIS IN 03/09/17 [id number] [place] [address]
[~2017-02-27 13:12] MED LIST changes: +BENZONATATE200 MG PO; +BREO ELLIPTA 21 EACH INH; +CLEOCIN HCL300 MG PO; +FLORAJEN3 CAPS460 MG PO; +LEVAQUIN750 MG PO; +MUCINEX DM ER1 EAC1 PO; +PREDNISONE10 MG PO; +SINGULAIR10 MG PO; +WELLBUTRIN SR150 MG PO
[2017-02-27 15:03] LABS: BASOPHILS 0.1 % (0-2); EOSINOPHILS 1.7 % (0-7); HEMATOCRIT 34.3 % (36.0-48.0); HEMOGLOBIN 11.1 g/dL (12-16); IMMATURE GRANULOCYTES 0.6 % (0-5); LYMPHOCYTES 22.5 % (15-50); MCH 30.6 pg (26.0-34.0); MCHC 32.4 g/dL (31.0-37.0); MCV 94.5 fL (80.0-100.0); MONOCYTES 10.2 % (2-11); NEUTROPHILS 64.9 % (40-80); RBC 3.63 10x6/uL (4.00-5.40); RDW 13.7 % (11.5-14.5); WBC 14.4 10x3/uL (4.8-10.8)
[2017-02-27 15:08] LABS: PLATELET COUNT 204 10x3/uL (130-400)
[2017-02-27 15:14] LABS: ANION GAP 13.4 mmol/L (8-16); CALCIUM 8.8 mg/dL (8.5-10.1); CARBON DIOXIDE 24.6 mmol/L (21.0-32.0); CREATININE - SERUM 1.3 mg/dL (0.6-1.3)
[2017-02-27 16:15] VITALS: BP 130/70
[2017-02-27 17:48] VITALS: BP 128/74; BMI 28.0
[2017-02-27 22:03] LABS: APPEARANCE CLEAR (CLEAR); BILIRUBIN NEGATIVE (NEGATIVE); COLOR YELLOW (YELLOW); GLUCOSE NEGATIVE (NEGATIVE); KETONE NEGATIVE (NEGATIVE); NITRITE NEGATIVE (NEGATIVE); PROTEIN NEGATIVE (NEGATIVE); UROBILINOGEN NORMAL (NORMAL)
[2017-02-28] VITALS: BP 129/64
[2017-02-28 04:00] VITALS: BP 110/69
[2017-02-28 06:16] LABS: BASOPHILS 0.2 % (0-2); EOSINOPHILS 2.7 % (0-7); HEMATOCRIT 33.1 % (36.0-48.0); HEMOGLOBIN 10.6 g/dL (12-16); IMMATURE GRANULOCYTES 0.9 % (0-5); LYMPHOCYTES 31.3 % (15-50); MCH 30.8 pg (26.0-34.0); MCV 96.2 fL (80.0-100.0); MEAN PLATELET VOLUME 10.8 fL (7.4-10.4); NEUTROPHILS 54.9 % (40-80); PLATELET COUNT 202 10x3/uL (130-400); RBC 3.44 10x6/uL (4.00-5.40); RDW 13.9 % (11.5-14.5); WBC 11.8 10x3/uL (4.8-10.8)
[2017-02-28 06:36] LABS: ALBUMIN 2.6 g/dL (3.4-5.0); ANION GAP 14.4 mmol/L (8-16); BILIRUBIN - TOTAL 0.25 mg/dL (0.2-1.3); CALCIUM 8.9 mg/dL (8.5-10.1); CARBON DIOXIDE 23.5 mmol/L (21.0-32.0); CREATININE - SERUM 1.2 mg/dL (0.6-1.3); POTASSIUM - SERUM 3.9 mmol/L (3.5-5.1); PROTEIN - SERUM 6.9 g/dL (6.4-8.2)
[2017-02-28 08:26] VITALS: BP 109/66
[2017-02-28 11:50] VITALS: BP 108/67
[2017-02-28 14:24] VITALS: BMI 27.9
[2017-02-28 15:47] VITALS: BP 154/73
[2017-03-01] VITALS: BP 120/66
[2017-03-01 04:00] VITALS: BP 120/49
[2017-03-01 07:08] LABS: BASOPHILS 0.2 % (0-2); EOSINOPHILS 0.1 % (0-7); HEMATOCRIT 32.6 % (36.0-48.0); HEMOGLOBIN 10.3 g/dL (12-16); IMMATURE GRANULOCYTES 6.3 % (0-5); LYMPHOCYTES 16.9 % (15-50); MCH 30.4 pg (26.0-34.0); MCHC 31.6 g/dL (31.0-37.0); MCV 96.2 fL (80.0-100.0); MONOCYTES 4.4 % (2-11); NEUTROPHILS 72.1 % (40-80); PLATELET COUNT 253 10x3/uL (130-400); RBC 3.39 10x6/uL (4.00-5.40); WBC 11.5 10x3/uL (4.8-10.8)
[2017-03-01 07:20] LABS: ALBUMIN 2.9 g/dL (3.4-5.0); ANION GAP 17.4 mmol/L (8-16); BILIRUBIN - TOTAL 0.1 mg/dL (0.2-1.3); CALCIUM 9.2 mg/dL (8.5-10.1); CREATININE - SERUM 1.3 mg/dL (0.6-1.3); POTASSIUM - SERUM 4.4 mmol/L (3.5-5.1); PROTEIN - SERUM 7.2 g/dL (6.4-8.2)
[2017-03-01 08:21] VITALS: BP 132/73
[2017-03-01 16:09] VITALS: BP 143/79
[2017-03-01 21:23] VITALS: BP 131/75
[2017-03-02 01:06] VITALS: BP 152/84
[2017-03-02 04:46] VITALS: BP 184/91
[2017-03-02 06:32] LABS: BASOPHILS 0.2 % (0-2); EOSINOPHILS 0.1 % (0-7); HEMATOCRIT 31.6 % (36.0-48.0); IMMATURE GRANULOCYTES 10.9 % (0-5); LYMPHOCYTES 21.1 % (15-50); MCH 30.6 pg (26.0-34.0); MCHC 31.6 g/dL (31.0-37.0); MCV 96.6 fL (80.0-100.0); MEAN PLATELET VOLUME 10.5 fL (7.4-10.4); MONOCYTES 10.2 % (2-11); NEUTROPHILS 57.5 % (40-80); PLATELET COUNT 267 10x3/uL (130-400); RBC 3.27 10x6/uL (4.00-5.40)
[2017-03-02 06:34] LABS: WBC 16.1 10x3/uL (4.8-10.8)
[2017-03-02 06:55] LABS: ALBUMIN 2.6 g/dL (3.4-5.0); ANION GAP 13.1 mmol/L (8-16); BILIRUBIN - TOTAL 0.05 mg/dL (0.2-1.3); CALCIUM 9.2 mg/dL (8.5-10.1); CARBON DIOXIDE 26.2 mmol/L (21.0-32.0); CREATININE - SERUM 1.1 mg/dL (0.6-1.3); POTASSIUM - SERUM 4.3 mmol/L (3.5-5.1); PROTEIN - SERUM 6.3 g/dL (6.4-8.2)
[2017-03-02 08:45] VITALS: BP 139/68
[2017-03-02 12:45] VITALS: BP 142/85
[2017-03-02 17:29] VITALS: BP 141/84
[2017-03-03] VITALS: BP 144/70
[2017-03-03 04:00] VITALS: BP 124/77
[2017-03-03 06:46] LABS: BASOPHILS 0.2 % (0-2); EOSINOPHILS 0.1 % (0-7); HEMATOCRIT 32.3 % (36.0-48.0); HEMOGLOBIN 10.2 g/dL (12-16); IMMATURE GRANULOCYTES 13.6 % (0-5); MCH 30.6 pg (26.0-34.0); MCHC 31.6 g/dL (31.0-37.0); MEAN PLATELET VOLUME 10.7 fL (7.4-10.4); MONOCYTES 8.3 % (2-11); NEUTROPHILS 62.8 % (40-80); PLATELET COUNT 275 10x3/uL (130-400); RBC 3.33 10x6/uL (4.00-5.40); RDW 14.1 % (11.5-14.5); WBC 17.4 10x3/uL (4.8-10.8)
[2017-03-03 07:03] LABS: ALBUMIN 2.7 g/dL (3.4-5.0); ANION GAP 15.2 mmol/L (8-16); BILIRUBIN - TOTAL 0.11 mg/dL (0.2-1.3); CALCIUM 8.7 mg/dL (8.5-10.1); CARBON DIOXIDE 23.5 mmol/L (21.0-32.0); CREATININE - SERUM 1.4 mg/dL (0.6-1.3); POTASSIUM - SERUM 4.7 mmol/L (3.5-5.1); PROTEIN - SERUM 6.5 g/dL (6.4-8.2)
[2017-03-03 10:47] VITALS: BP 137/71
[2017-03-03 17:00] VITALS: BP 133/74
[2017-03-03 22:16] VITALS: BP 153/91
[2017-03-04 01:22] VITALS: BP 112/59
[2017-03-04 05:19] VITALS: BP 129/65
[2017-03-04 07:30] LABS: HEMATOCRIT 33.4 % (36.0-48.0); HEMOGLOBIN 10.5 g/dL (12-16); MCH 30.5 pg (26.0-34.0); MCHC 31.4 g/dL (31.0-37.0); MCV 97.1 fL (80.0-100.0); MEAN PLATELET VOLUME 10.6 fL (7.4-10.4); PLATELET COUNT 324 10x3/uL (130-400); RBC 3.44 10x6/uL (4.00-5.40); RDW 14.2 % (11.5-14.5); WBC 26.1 10x3/uL (4.8-10.8)
[2017-03-04 07:54] LABS: LYMPHOCYTES 19 % (15-50); MONOCYTES 2 % (2-11); NEUTROPHILS 62 % (40-80); PLATELET ESTIMATE NORMAL
[2017-03-04 07:56] LABS: ALBUMIN 2.8 g/dL (3.4-5.0); ANION GAP 15.1 mmol/L (8-16); CALCIUM 9.2 mg/dL (8.5-10.1); CARBON DIOXIDE 23.7 mmol/L (21.0-32.0); CREATININE - SERUM 1.3 mg/dL (0.6-1.3); POTASSIUM - SERUM 4.8 mmol/L (3.5-5.1)
[2017-03-04 08:15] LABS: BILIRUBIN - TOTAL 0.15 mg/dL (0.2-1.3); PROTEIN - SERUM 6.9 g/dL (6.4-8.2)
[2017-03-04 12:33] VITALS: BP 138/80
[2017-03-04 16:51] VITALS: BP 156/84
[2017-03-05 02:28] VITALS: BP 157/75
[2017-03-05 04:41] VITALS: BP 157/75
[2017-03-05 06:22] LABS: HEMATOCRIT 30.6 % (36.0-48.0); HEMOGLOBIN 9.8 g/dL (12-16); IMMATURE GRANULOCYTES 13.7 % (0-5); MCH 31.1 pg (26.0-34.0); MCV 97.1 fL (80.0-100.0); MEAN PLATELET VOLUME 10.4 fL (7.4-10.4); PLATELET COUNT 294 10x3/uL (130-400); RBC 3.15 10x6/uL (4.00-5.40); RDW 14.4 % (11.5-14.5); WBC 25.4 10x3/uL (4.8-10.8)
[2017-03-05 06:50] LABS: ANION GAP 14.8 mmol/L (8-16); CREATININE - SERUM 1.5 mg/dL (0.6-1.3); POTASSIUM - SERUM 4.8 mmol/L (3.5-5.1)
[2017-03-05 07:46] LABS: EOSINOPHILS 3 % (0-7); LYMPHOCYTES 11 % (15-50); MONOCYTES 22 % (2-11); NEUTROPHILS 58 % (40-80)
[2017-03-05 07:47] LABS: HYPOCHROMASIA OCC; PLATELET ESTIMATE NORMAL
[2017-03-05 08:26] VITALS: BP 162/79
[2017-03-05 12:27] VITALS: BP 153/87
[2017-03-05 16:51] VITALS: BP 163/68
[2017-03-05 20:51] VITALS: BP 163/84
[2017-03-06 03:09] LABS: IMMUNOGLOBULIN D 2.43 mg/dL (<14.11)
[2017-03-06 05:53] VITALS: BP 167/85
[2017-03-06 05:57] LABS: BASOPHILS 0.2 % (0-2); EOSINOPHILS 0 % (0-7); HEMATOCRIT 30.9 % (36.0-48.0); HEMOGLOBIN 9.9 g/dL (12-16); IMMATURE GRANULOCYTES 11.9 % (0-5); LYMPHOCYTES 17.7 % (15-50); MCH 31.1 pg (26.0-34.0); MCV 97.2 fL (80.0-100.0); MEAN PLATELET VOLUME 10.5 fL (7.4-10.4); MONOCYTES 7.7 % (2-11); NEUTROPHILS 62.5 % (40-80); PLATELET COUNT 293 10x3/uL (130-400); RBC 3.18 10x6/uL (4.00-5.40); RDW 14.6 % (11.5-14.5); WBC 28.6 10x3/uL (4.8-10.8)
[2017-03-06 06:00] LABS: ANION GAP 16.8 mmol/L (8-16); CALCIUM 8.6 mg/dL (8.5-10.1); CARBON DIOXIDE 23.7 mmol/L (21.0-32.0); CREATININE - SERUM 1.2 mg/dL (0.6-1.3); POTASSIUM - SERUM 4.5 mmol/L (3.5-5.1)
[2017-03-06 08:44] VITALS: BP 174/96
[2017-03-06 11:53] VITALS: BP 191/83
[2017-03-06 16:24] VITALS: Ht 162.6 cm; Wt 73.9 kg
[2017-03-06 20:00] VITALS: BP 156/78
[2017-03-07] VITALS: BP 132/61
[2017-03-07 05:00] VITALS: BP 125/65
[2017-03-07 07:08] LABS: BASOPHILS 0.3 % (0-2); EOSINOPHILS 0.5 % (0-7); HEMATOCRIT 30.6 % (36.0-48.0); HEMOGLOBIN 9.9 g/dL (12-16); LYMPHOCYTES 34.4 % (15-50); MCH 31.2 pg (26.0-34.0); MCHC 32.4 g/dL (31.0-37.0); MCV 96.5 fL (80.0-100.0); MONOCYTES 5.9 % (2-11); NEUTROPHILS 47.9 % (40-80); PLATELET COUNT 285 10x3/uL (130-400); RBC 3.17 10x6/uL (4.00-5.40); RDW 15.1 % (11.5-14.5); WBC 23.8 10x3/uL (4.8-10.8)
[2017-03-07 07:27] LABS: ANION GAP 9.7 mmol/L (8-16); CALCIUM 8.7 mg/dL (8.5-10.1); CREATININE - SERUM 1.2 mg/dL (0.6-1.3); POTASSIUM - SERUM 4.6 mmol/L (3.5-5.1)
[2017-03-07 07:30] LABS: CARBON DIOXIDE 30.9 mmol/L (21.0-32.0)
[2017-03-07 08:33] VITALS: BP 140/77
[2017-03-07 12:30] VITALS: BP 134/77
[2017-03-07 20:00] VITALS: BP 177/90
[2017-03-08 04:00] VITALS: BP 144/75
[2017-03-08 06:46] LABS: BASOPHILS 0.1 % (0-2); EOSINOPHILS 0 % (0-7); HEMATOCRIT 34.1 % (36.0-48.0); HEMOGLOBIN 10.8 g/dL (12-16); IMMATURE GRANULOCYTES 7.3 % (0-5); LYMPHOCYTES 11.6 % (15-50); MCH 30.5 pg (26.0-34.0); MCHC 31.7 g/dL (31.0-37.0); MCV 96.3 fL (80.0-100.0); MEAN PLATELET VOLUME 10.5 fL (7.4-10.4); MONOCYTES 3.8 % (2-11); NEUTROPHILS 77.2 % (40-80); PLATELET COUNT 297 10x3/uL (130-400); RBC 3.54 10x6/uL (4.00-5.40); RDW 15.2 % (11.5-14.5); WBC 21.3 10x3/uL (4.8-10.8)
[2017-03-08 06:59] LABS: ANION GAP 13.4 mmol/L (8-16); CALCIUM 8.8 mg/dL (8.5-10.1); CREATININE - SERUM 1.3 mg/dL (0.6-1.3)
[2017-03-08 07:00] LABS: POTASSIUM - SERUM 5.4 mmol/L (3.5-5.1)
[2017-03-08 08:16] VITALS: BP 151/85
[2017-03-08 09:58] VITALS: BP 146/93
[2017-03-08 14:37] LABS: APPEARANCE CLEAR (CLEAR); BILIRUBIN NEGATIVE (NEGATIVE); COLOR YELLOW (YELLOW); GLUCOSE NEGATIVE (NEGATIVE); KETONE NEGATIVE (NEGATIVE); NITRITE NEGATIVE (NEGATIVE); PROTEIN NEGATIVE (NEGATIVE); SPECIFIC GRAVITY 1.015 (1.005-1.020); UROBILINOGEN NORMAL (NORMAL)
[2017-03-08 16:14] VITALS: BP 125/70
[2017-03-08 20:00] VITALS: BP 157/87
[2017-03-09] VITALS: BP 153/73
[2017-03-09 04:00] VITALS: BP 154/84
[2017-03-09 09:03] VITALS: BP 149/84
[2017-03-09 09:12] LABS: ANION GAP 12.3 mmol/L (8-16); CALCIUM 8.8 mg/dL (8.5-10.1); CARBON DIOXIDE 27.2 mmol/L (21.0-32.0); CREATININE - SERUM 1.1 mg/dL (0.6-1.3)
[2017-03-09 09:13] LABS: POTASSIUM - SERUM 4.5 mmol/L (3.5-5.1)
[2017-03-09 09:16] LABS: BASOPHILS 0 % (0-2); EOSINOPHILS 0 % (0-7); HEMATOCRIT 30.5 % (36.0-48.0); HEMOGLOBIN 9.9 g/dL (12-16); IMMATURE GRANULOCYTES 3.9 % (0-5); LYMPHOCYTES 17.2 % (15-50); MCH 31.2 pg (26.0-34.0); MCHC 32.5 g/dL (31.0-37.0); MCV 96.2 fL (80.0-100.0); MEAN PLATELET VOLUME 10.4 fL (7.4-10.4); NEUTROPHILS 73.9 % (40-80); PLATELET COUNT 270 10x3/uL (130-400); RBC 3.17 10x6/uL (4.00-5.40); RDW 15.8 % (11.5-14.5); WBC 21.6 10x3/uL (4.8-10.8)
[2017-03-09] MEDS ORDERED: IPRAT-ALBUT 0.5-3 ML UPD (10:51)
[2017-03-09] MEDS ORDERED: BROVANA15 MCG/2 M INH (10:51)
[2017-03-11 17:10] LABS: ACID FAST SMEAR Negative (()); AFB SPECIMEN PROCESSING Concentration (())
[2017-03-11 17:10] LABS: ACID FAST SMEAR Negative (()); AFB SPECIMEN PROCESSING Concentration (())
[2017-03-13 10:17] LABS: FUNGUS STAIN Final report (())
[2017-03-13 10:17] LABS: FUNGUS STAIN Final report (())
[2017-04-08 07:10] LABS: FUNGUS MYCOLOGY CULTURE Final report (())
[2017-04-08 07:10] LABS: FUNGUS MYCOLOGY CULTURE Final report (())
== END 2017-03-09 15:26 | disposition home or self-care (01) | DRG 194 ==
LOC: D.MS 13:12 → D.SDCHOLD 13:12 → D.MS 13:37
PROVIDERS: Emergency Medicine; Family Medicine; Internal Medicine Hematology & Oncology; Internal Medicine Nephrology; Otolaryngology
PROC: 0JH63WZ Insertion of Totally Implantable Vascular Access Device into Chest Subcutaneous Tissue and Fascia, Percutaneous Approach (ICD-10-PCS; 2017-02-27)
PROC: 099Q8ZZ Drainage of Right Maxillary Sinus, Via Natural or Artificial Opening Endoscopic (ICD-10-PCS; 2017-03-08)
PROC: 099X8ZZ Drainage of Left Sphenoid Sinus, Via Natural or Artificial Opening Endoscopic (ICD-10-PCS; 2017-03-08)
PROC: 099R8ZZ Drainage of Left Maxillary Sinus, Via Natural or Artificial Opening Endoscopic (ICD-10-PCS; principal; 2017-03-08 07:45)
DX: J18.9 Pneumonia, unspecified organism (principal); E87.1 Hypo-osmolality and hyponatremia; J44.1 Chronic obstructive pulmonary disease with (acute) exacerbation; J98.11 Atelectasis; J32.0 Chronic maxillary sinusitis; C50.919 Malignant neoplasm of unspecified site of unspecified female breast; F32.9 Major depressive disorder, single episode, unspecified; K21.9 Gastro-esophageal reflux disease without esophagitis; F17.200 Nicotine dependence, unspecified, uncomplicated; E78.5 Hyperlipidemia, unspecified; I10 Essential (primary) hypertension; B02.9 Zoster without complications

== ENCOUNTER → 2017-03-13 08:27 | Outpatient (CLI) | payer MEDICAID ==
[2017-03-06 16:24] VITALS: BMI 27.9
[~2017-03-13 08:27] MED LIST changes: +BROVANA15 MCG/2 M INH; +IPRAT-ALBUT 0.5-3 ML UPD
== END | disposition home or self-care (01) ==
LOC: D.RAD 08:00 → D.RT 04-09 11:00
DX: C34.90 Malignant neoplasm of unspecified part of unspecified bronchus or lung (principal)

== ENCOUNTER → 2017-07-08 12:21 | Outpatient (CLI) | payer MEDICAID ==
[2017-03-06 16:24] VITALS: BMI 27.9
[2017-07-08 13:56] LABS: CREATININE - SERUM 1.5 mg/dL (0.6-1.3)
== END | disposition home or self-care (01) ==
LOC: D.CT 12:21
PROVIDERS: Family Medicine
DX: C50.912 Malignant neoplasm of unspecified site of left female breast (principal)

== ENCOUNTER → 2017-08-15 13:56 | Outpatient (CLI) | payer MEDICAID ==
[2017-03-06 16:24] VITALS: BMI 27.9
== END | disposition home or self-care (01) ==
LOC: D.RAD 13:56
DX: C50.919 Malignant neoplasm of unspecified site of unspecified female breast (principal)

== ENCOUNTER → 2017-11-22 09:07 | Outpatient (CLI) | payer MEDICAID ==
[2017-03-06 16:24] VITALS: BMI 27.9
== END | disposition home or self-care (01) ==
LOC: D.RT 09:00
DX: J45.909 Unspecified asthma, uncomplicated (principal); J44.9 Chronic obstructive pulmonary disease, unspecified

== ENCOUNTER → 2018-09-02 08:22 | Outpatient (CLI) | payer MEDICAID ==
[2017-03-06 16:24] VITALS: BMI 27.9
== END | disposition home or self-care (01) ==
LOC: D.RT 09-01 10:00
PROVIDERS: ATTEND Internal Medicine Pulmonary Disease
DX: J45.909 Unspecified asthma, uncomplicated (principal); J44.9 Chronic obstructive pulmonary disease, unspecified

== ENCOUNTER → 2018-10-02 13:07 | Outpatient (CLI) | payer MEDICAID ==
[2017-03-06 16:24] VITALS: BMI 27.9
== END | disposition home or self-care (01) ==
LOC: D.MRI 13:07
PROVIDERS: ATTEND Nurse Practitioner Family
DX: R22.41 Localized swelling, mass and lump, right lower limb (principal)

== ENCOUNTER → 2019-10-06 15:44 | Outpatient (CLI) | payer MEDICAID ==
[2017-03-06 16:24] VITALS: BMI 27.9
[2019-10-06 16:34] LABS: CREATININE - SERUM 1.5 mg/dL (0.6-1.3)
== END | disposition home or self-care (01) ==
LOC: D.CT 15:44
PROVIDERS: ATTEND Family Medicine
DX: R10.9 Unspecified abdominal pain (principal)

== ENCOUNTER → 2019-10-09 15:32 | Outpatient (CLI) | payer MEDICAID ==
[2017-03-06 16:24] VITALS: BMI 27.9
== END | disposition home or self-care (01) ==
LOC: D.CT 15:32
PROVIDERS: ATTEND Family Medicine
DX: J18.9 Pneumonia, unspecified organism (principal)

== ENCOUNTER → 2020-05-06 11:17 | Outpatient (CLI) | payer MEDICAID ==
[2017-03-06 16:24] VITALS: BMI 27.9
[2020-05-06 12:52] LABS: BASOPHILS 0.2 % (0-2); EOSINOPHILS 1.7 % (0-7); HEMATOCRIT 41.1 % (36.0-48.0); HEMOGLOBIN 13.4 g/dL (12-16); IMMATURE GRANULOCYTES 0.8 % (0-5); LYMPHOCYTE ABS# 3.92 10x3/uL (1.18-3.74); LYMPHOCYTES 34.1 % (15-50); MCH 32.2 pg (26.0-34.0); MCHC 32.6 g/dL (31.0-37.0); MCV 98.8 fL (80.0-100.0); MEAN PLATELET VOLUME 11.7 fL (7.4-10.4); MONOCYTES 7.6 % (2-11); NEUTROPHILS 55.6 % (40-80); PLATELET COUNT 285 10x3/uL (130-400); RBC 4.16 10x6/uL (4.00-5.40); RDW 13.3 % (11.5-14.5); WBC 11.5 10x3/uL (4.8-10.8)
[2020-05-07 10:11] LABS: IMMUNOGLOBULIN A 145 mg/dL (87-352); IMMUNOGLOBULIN G 858 mg/dL (586-1602)
[2020-05-09 04:06] LABS: IMMUNOGLOBULIN E 227 IU/mL (6-495)
== END | disposition home or self-care (01) ==
LOC: D.CT 11:00
PROVIDERS: ATTEND Internal Medicine Pulmonary Disease
DX: J18.9 Pneumonia, unspecified organism (principal)

== ENCOUNTER 2020-07-01 15:30 | Outpatient (CLI) | payer BC ==
[2017-03-06 16:24] VITALS: BMI 27.9
== END 2020-07-01 23:59 | disposition home or self-care (01) ==
LOC: D.MAMMO 15:30
PROVIDERS: ATTEND Clinical Nurse Specialist Family Health
DX: Z12.31 Encounter for screening mammogram for malignant neoplasm of breast (principal)

== ENCOUNTER → 2020-07-21 15:29 | Outpatient (CLI) | payer MEDICAID ==
[2017-03-06 16:24] VITALS: BMI 27.9
== END | disposition home or self-care (01) ==
LOC: D.LAB 15:29
PROVIDERS: ATTEND Internal Medicine Pulmonary Disease
DX: Z11.52 Encounter for screening for COVID-19 (principal)

== ENCOUNTER → 2020-08-22 13:32 | Outpatient (CLI) | payer MEDICAID ==
[2017-03-06 16:24] VITALS: BMI 27.9
== END | disposition home or self-care (01) ==
LOC: D.LAB 13:32
PROVIDERS: ATTEND Internal Medicine Pulmonary Disease
DX: Z11.52 Encounter for screening for COVID-19 (principal)

== ENCOUNTER → 2020-08-24 10:47 | Outpatient (CLI) | payer MEDICAID ==
[2017-03-06 16:24] VITALS: BMI 27.9
== END | disposition home or self-care (01) ==
LOC: D.RT 07-26 14:00
PROVIDERS: ATTEND Internal Medicine Pulmonary Disease
DX: J44.9 Chronic obstructive pulmonary disease, unspecified (principal); J32.9 Chronic sinusitis, unspecified; Z11.52 Encounter for screening for COVID-19